=== PATIENT | male | born 1960 | race Caucasian/White ===

== ENCOUNTER 2018-03-29 14:01 | Outpatient (CLI) | payer OTHER ==
--- NOTE | 2018-03-29 21:14 | RAD ---
LEFT FOOT THREE VIEWS: 03/29/2018 FINDINGS: No fracture, periosteal reaction, or area of bony destruction is seen. There is some joint space eloise rowing in the first metatarsophalangeal joint with a little bony spurring. I suspect there has been old trauma here. The remainder of the foot is unremarkable. IMPRESSION: Degenerative changes of the first metatarsophalangeal joint. No abnormalities seen in the vicinity o f the third toe or proximal to it. POS: HOME
== END 2018-03-29 14:02 | disposition home or self-care (01) ==
LOC: BURRAD 14:01
PROVIDERS: ATTEND Family Medicine
DX: M79.672 Pain in left foot (principal); M19.072 Primary osteoarthritis, left ankle and foot